=== PATIENT | male | born 1935 | race Caucasian/White ===

== ENCOUNTER 2025-04-03 16:29 | Inpatient (IN) | payer MEDICARE, BC, SELFPAY ==
[2025-04-03] VITALS (23 sets, daily range): BP systolic 73–143; BP diastolic 39–104; BMI 26.1
--- NOTE | 2025-04-03 13:25 | ED.GENMED ---
History of Present Illness
General
Chief Complaint: Weakness
Time Seen by Provider: 04/03/25 13:21
History of Present Illness
History of Present Illness:
TIME OF INITIAL EVALUATION
- 1:20 PM
REVIEW OF OLD RECORDS
- The patient has history of high blood pressure and CAD. He self caths. I reviewed records, last documentation here is from 2017 and was admitted for low hemoglobin at that time and received blood.
Note:
CHIEF COMPLAINT(S)
- Dizziness
- Low blood pressure
HISTORY OF PRESENT ILLNESS
The patient is an 89-year-old male who presented to the emergency department with symptoms of dizziness and hypotension. The patient reported that his blood pressure has always been high in the past but was noted to be low today, which prompted
concerns. He is no longer taking his prescribed antihypertensive medication. 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
referring to a catheter or bladder manipulation.
Post-rehabilitation, he was discharged on Monday. Since being at home, he experienced a fever of 102�F and was managed by his spouse with acetaminophen (Tylenol). EMS transport was involved in his care due to the low blood pressure readings and
subsequent weakness. Upon evaluation, he denies experiencing chills or feeling feverish at present and reports no respiratory symptoms such as coughing or dyspnea. The patients dizziness persists.
ADDITIONAL HISTORY OBTAINED FROM SOURCE OTHER THAN THE PATIENT
According to the patients spouse, the patient had episodes of weakness and was feverish at home, which was managed using acetaminophen. EMS brought the patient to the emergency department after observing low blood pressure.
SOCIAL DETERMINANTS AFFECTING HEALTH
The patients spouse assists with his care, particularly in managing his fever at home, which indicates family involvement in caregiving.
PHYSICAL EXAM
- General: Alert, but appears generally weak
- Skin: Appears pale
- Head: Normocephalic, atraumatic.
- Neck: Supple, trachea midline.
- Eye, Ears, Mouth, and Throat: Oral mucosa moist.
- Cardiovascular: Normal peripheral perfusion, No edema.
- Respiratory: Respirations are non-labored.
- Gastrointestinal: Abdomen nondistended.
- Back: Normal range of motion, Normal alignment.
- Musculoskeletal: Normal range of motion, normal strength.
- Neurological: The patient is awake and alert moving all extremities equally
- Psychiatric: Cooperative, appropriate mood & affect.
PLAN
- Intravenous fluids initiated for hypotension.
- Urine sample requested; catheterization to be performed temporarily if necessary.
- Monitor vital signs and symptom progression.
- Await further diagnostic results and reassess.
DIFFERENTIAL DIAGNOSIS
The Differential Diagnosis includes, in no particular order and is not limited to:
- Orthostatic hypotension
- Dehydration
- Sepsis
- Cardiac arrhythmia
- Acute kidney injury
- Medication effects or withdrawal
- Adrenal insufficiency
- Neurological disorder (e.g., vestibular dysfunction)
- Anemia
- Electrolyte imbalance
RADIOLOGY
- Chest x-ray obtained�no definite infiltrate on x-ray
EKG
- Sinus 80, left axis deviation, nonspecific ST abnormality, artifact noted
LABS
- White count 35.1, hemoglobin 8.3, bicarb 20, creatinine 1.8, lactic 5.7
UPDATE
-SUMMARY OF ENCOUNTER
The patient, an 89-year-old male, presented to the emergency department with dizziness and hypotension. His history of high blood pressure contrasts with his current low readings. After rehabilitation for bladder scar tissue issues, he experienced
an episode of fever, which his spouse managed with acetaminophen. EMS was involved due to concerns about his vital signs and weakness. A recent discharge from rehabilitation necessitates admission for further evaluation and treatment. Notably, a
urinary tract infection is suspected, supported by high white blood cell and lactate levels, suggesting sepsis. Intravenous fluids and antibiotics have been administered to manage the suspected infection. Additionally, a chest x-ray was requested
for further evaluation.
DISPOSITION
Admit
ASSESSMENT
The clinical presentation is most consistent with sepsis secondary to a urinary tract infection, particularly considering the prior catheter use. The marked leukocytosis and elevated lactate levels corroborate the diagnosis.
EMERGENCY TREATMENTS ADMINISTERED
Intravenous fluids and antibiotics.
MANAGEMENT OF THE PATIENTS CARE WAS DISCUSSED WITH
Discussions held with bronze chaser regarding suspected sepsis and management strategy.
PLAN
Administer additional intravenous fluids, initiate broad-spectrum antibiotics, obtain chest x-ray, and admit the patient to the hospital for ongoing care and monitoring of blood pressure and infection status.
INDEPENDENT REVIEW OF LABS AND INTERPRETATION OF TESTS
My independent review indicates elevated white blood cell count and elevated lactate level, both suggestive of a systemic infection process, consistent with sepsis.
PROCEDURES
Urinary catheterization was conducted for urine sampling.
MEDICAL DECISION MAKING
-Complexity of Data Reviewed: Chronic conditions affecting care include previous prostate cancer and recent bladder surgery. The differential diagnosis includes orthostatic hypotension, dehydration, sepsis, cardiac arrhythmia, acute kidney injury,
medication effects or withdrawal, adrenal insufficiency, neurological disorder, anemia, and electrolyte imbalance.
-Data:
Category 1: Clinical information was obtained from an independent historian, the patients spouse. A chest x-ray was ordered but not yet completed.
Category 3: Discussion of management with the patients bronze chaser, who had concerns about sepsis.
-Risk: The decision to admit the patient was due to concerns of sepsis, requiring close monitoring, antibiotic therapy, and potential for hemodynamic support.
DIAGNOSIS
- Sepsis
- Urinary Tract Infection (N39.0)
- Hypotension (I95.9)
Past History
Past History
ED Past Medical History: CAD, HTN and Hypercholesterolemia
ED Past Surgical History: Cardiac
Social History
Tobacco: Non-smoker
Phy Exam
Physical Exam
Physical Exam:
See HPI
Course
Orders/Labs/Results
Orders:
Orders
04/03/25 13:16
Electrocardiogram (*1) Urgent
Reason for Study: Other
Other Reason for Exam: Possible Sepsis
Cardiac Monitoring- Treatment ONCE
EKG- Treatment ONCE
IV Insert/Care/Rem.- Treatment PRN
Straight cath- Treatment ONCE
O2 Therapy [RESP] Urgent
Titrate/Wean O2 to maintain O2 sat greater than (%): 93
Special Instructions: TO MAINTAIN CONTINUOUS O2 SATS > OR = 93%
Pulse Ox/cont/shift [RESP] Urgent
Quantity: 1
Special Instructions: CONTINUOUS
04/03/25 13:18
Complete Blood Count/With Diff Urgent
Comprehensive Metabolic Panel Urgent
Lactic Acid Q4H
Comment: ON ICE, CANCEL 2ND ORDER IF FIRST LACTIC ACID LEVEL <2
Urinalysis Reflex To Culture Urgent
Date Specimen was Collected: 04/03/25
Time Specimen was Collected: 13:16
Urine Microscopic Reflex Cult Urgent
Blood Culture Q20M
[facility] Source: Blood/Venous
Specimen Description:
Comment: Urgent from separate sites. If patient screens positive for possible sepsis
Urine Culture Urgent
[facility] Source: U
Specimen Description:
Date Specimen was Collected: 04/03/25
Time Specimen was Collected: 13:16
04/03/25 13:19
Blood Culture Q20M
[facility] Source: Blood/Venous
Specimen Description:
Comment: Urgent from separate sites. If patient screens positive for possible sepsis
04/03/25 14:38
CR Chest Portable - 1 View Urgent
Comment:
Reason For Exam: sepsis
Reason Study Needs to be Portable: Patient Unstable
04/03/25 14:40
CefTRIAXone [Rocephin] 1,000 mg IV NOW STA
04/03/25 14:44
0.9% Sodium Chloride 1000 ml [Nss] 1,000 ml IV BOLUS
04/03/25 14:45
0.9% Sodium Chloride 500 ml [Nss] 500 ml IV BOLUS
04/03/25 17:30
Lactic Acid Q4H
Comment: ON ICE, CANCEL 2ND ORDER IF FIRST LACTIC ACID LEVEL <2
Abnormal Lab Results
04/03/25
13:18
WBC 35.1 H 10^3/uL
(4.8-10.8)
RBC 3.10 L 10^6/uL
(4.70-6.10)
Hgb 8.3 L g/dL
(13.0-18.0)
Hct 27.0 L %
(39.0-52.0)
MCH 26.8 L pg
(27.0-31.0)
MCHC 30.7 L g/dL
(33.0-37.0)
RDW 15.6 H %
(11.5-14.5)
Abs Immat Gran (auto) 0.6 H 10^3/uL
(0-0.05)
Absolute Neuts (auto) 32.7 H 10^3/uL
(1.4-6.5)
Absolute Lymphs (auto) 0.4 L 10^3/uL
(1.2-3.4)
Absolute Monos (auto) 1.3 H 10^3/uL
(0.1-0.6)
Immature Gran % 1.8 H %
(0-0.5)
Neutrophils % 93.3 H %
(42.2-75.2)
Lymphocytes % 1.1 L %
(20.5-51.1)
Chloride 113 H mmol/L
(98-107)
Carbon Dioxide 20 L mmol/L
(22-30)
BUN 23 H mg/dl
(9-20)
Creatinine 1.8 H mg/dL
(0.7-1.3)
Glucose 137 H mg/dl
(70-99)
Lactic Acid 5.7 H* mmol/L
(0.7-2.0)
Calcium 8.3 L mg/dl
(8.4-10.2)
Total Protein 6.2 L g/dl
(6.3-8.2)
Albumin 3.1 L g/dl
(3.5-5.0)
Urine Ketones 1+ A
(Negative)
Ur Occult Blood Reflex 4+ A
(Negative)
Urine Bilirubin 1+ A
(Negative)
Leukocyte Esterase Rfl 3+ A
(Negative)
Urine RBC 30-40 A /HPF
(0-2)
Urine WBC (Reflex) 30-40 A /HPF
(0-5)
Urine Bacteria (Reflex) Many A
(Negative)
Urine Albumin (Reflex) 3+ A
(Neg - Trace)
04/03/25 13:18
04/03/25 13:18
Vital Signs
Initial and Last Documented VS:
Initial Vital Signs
Temp Pulse Resp BP Pulse Ox
36.5 C 83 15 79/48 97
04/03/25 13:12 04/03/25 13:12 04/03/25 13:12 04/03/25 13:12 04/03/25 13:12
Last Documented Vital Signs
Temp Pulse Resp BP Pulse Ox
36.5 C 79 23 73/44 99
04/03/25 13:12 04/03/25 13:30 04/03/25 13:30 04/03/25 13:30 04/03/25 13:30
*Pulse Oximetry
SaO2: 97
Oxygen Mode of Delivery: Room air
Patient hypoxic: no
*Critical Care Note
Total Time (30-74mins, 75-104mins- exclusive of procedures): Not Applicable
ED Attending Note
-
Portions of this chart may have been created with voice recognition software.� Occasional wrong word or��sound alike� substitutions may have occurred due to the inherent limitations of voice recognition software.
Discharge Plan
Departure
Patient Disposition: Admit
Date of Disposition: 04/03/25
Time of Disposition: 14:58
Presentation/result/management discussed w/ accepting MD/DO: Hospitalist
Patient with high blood pressure during this ER visit?: Yes
Discharge Problem:
Sepsis
Prescriptions:
No Action
simvastatin 20 MG tablet
20 mg PO QPM
aspirin 81 mg Tablet,Delayed Release (Dr/Ec)
81 mg PO QPM
acetaminophen [Tylenol Extra Strength] 500 mg Tablet
500 mg PO Q6HPRN PRN (Reason: MILD PAIN)
metoprolol tartrate [Lopressor] 50 mg Tablet
50 mg PO BID
alprazolam 0.25 MG tablet
0.25 mg PO BID@0800,1300
Referrals:
Augustus Hahn MD [Family Provider, Internal Medicine]
Interventions
Interventions:
*Risk Screen - Suicide Last Done: 04/03/25 13:12
*General Assessment Last Done: 04/03/25 13:12
*Neglect/Abuse Screening Last Done: 04/03/25 13:12
ED- Cardiac Assessment Last Done: 04/03/25 14:22
ED- Neurological Assessment Last Done: 04/03/25 14:22
ED- Pulmonary Assessment Last Done: 04/03/25 14:22
Discharge Date and Time
Print Language: GREEK
[2025-04-03 13:39] LABS: Hematocrit 27.0 % (39.0-52.0); Hemoglobin 8.3 g/dL (13.0-18.0); Mean Corp Hgb Conc. 30.7 g/dL (33.0-37.0); Mean Corpuscular Volume 87.1 fL (80.0-94.0); Platelet Count 309 10^3/uL (130-400); Red Cell Dist. Width 15.6 % (11.5-14.5)
[2025-04-03 13:47] LABS: AST (SGOT) 19 U/L (17-59); Albumin 3.1 g/dl (3.5-5.0); Alkaline Phosphatase 101 U/L (38-126); Blood Urea Nitrogen 23 mg/dl (9-20); Calcium 8.3 mg/dl (8.4-10.2); Carbon Dioxide 20 mmol/L (22-30); Chloride 113 mmol/L (98-107); Estimated Creatinine Clearance 30 ml/min; Glucose 137 mg/dl (70-99); Potassium 4.6 mmol/L (3.5-5.1); Sodium 142 mmol/L (135-145); Total Protein 6.2 g/dl (6.3-8.2); eGFR 35.76
[2025-04-03 14:07] LABS: Nucleated Red Blood Cells % 0 % (-)
[2025-04-03 14:43] LABS: Urine Character Slightly Cloudy (Clear)
[2025-04-03 14:50] LABS: Urine Squamous Cell >30 /LPF (Few); Urine Urothelial Cell 0-2 /LPF (FEW)
[2025-04-03 14:51] LABS: Urine Red Blood Cell 30-40 /HPF (0-2)
[2025-04-03 14:52] LABS: Urine White Cell 30-40 /HPF (0-5)
--- NOTE | 2025-04-03 15:03 | HPS.HSE ---
Family Physician
-
Family Physician: Augustus Hahn
Chief Complaint
-
dizziness, fever, low blood pressure
History of Present Illness
Patient is a 89-year-old male with past medical history significant for hypertension, hyperlipidemia and anxiety who presented to [facility] ED for evaluation of dizziness, fever and low blood pressure. Patient reports recent procedure at [facility] for
scar tissue removal from bladder to make completing straight cath easier. This is the second time he has had this procedure and reports scar tissue developed after radiation for prostate cancer. Patient stated he has needed to straight cath himself
for 45 years now. He reports 1 month stay in rehab post procedure and was discharged home last Monday. Patient had follow up appoint with urology and Sullivan removed yesterday and was had 2 successful straight caths since then. Today he reported fever
1-2 that was treated with acetaminophen, felt dizzy and visiting nurse recorded low BP. Symptoms reviewed with primary doctor who recommended patient be sent to hospital for evaluation and treatment.
Medical History
Past Medical History
Past Medical History: Reports Other
Additional Past Medical History:
hypertension
hyperlipidemia
anxiety
Past Surgical History: Reports Other
Additional Past Surgical History:
Left femur ORIF 08/20/17
heart bypass
Prostatectomy
Bladder stone
bladder scar tissue removal
Social History
Tobacco: Non-smoker
Alcohol: None
Personal:
Living: With Family
Family History
Family History: Not pertinent
Allergies / Home Medications
Allergies reflects when Allergies were last updated in [facility].
Home Medications with original date entered in [facility]
Allergy/Medication List:
Allergies
Allergy/AdvReac Type Severity Reaction Status Date / Time
latex Allergy Unknown Verified 08/19/17 16:31
Home Medications
simvastatin 20 mg tablet 20 mg PO QPM 08/19/17
acetaminophen 500 mg tablet (Tylenol Extra Strength) 500 mg PO Q6HPRN PRN MILD PAIN 04/03/25
alprazolam 0.25 mg tablet 0.25 mg PO BID@0800,1300 04/03/25
aspirin 81 mg tablet,delayed release 81 mg PO QPM 04/03/25
metoprolol tartrate 50 mg tablet (Lopressor) 50 mg PO BID 04/03/25
Review of Systems
-
History Source: Patient
Constitutional: Reports Fever and Fatigue
EENT: Reports No Symptoms
Respiratory: Reports No Symptoms
Cardiac: Reports No Symptoms
Abdomen/GI: Reports No Symptoms
: Reports No Symptoms
Musculoskeletal: Reports No Symptoms
Skin: Reports No Symptoms
Neurological: Reports Dizzy and Weakness
Endocrine: Reports No Symptoms
Hematologic/Lymphatic: Reports No Symptoms
Psych: Reports No Symptoms
Physical Exam
Vital Signs
Vital Signs
Temp Pulse Resp BP Pulse Ox
97.7 F 79 23 73/44 99
04/03/25 13:12 04/03/25 13:30 04/03/25 13:30 04/03/25 13:30 04/03/25 13:30
Physical Exam
General: No Apparent Distress and Appears Chronically Ill
HEENT: NormoCephalic, Moist mucous membranes and Atraumatic
Respiratory: Clear and Non Labored Respirations
Cardiac: S1/S2, Regular Rhythm and Tachycardia
GI: Soft, Non Tender, Non Distended and Normal Bowel Sounds; No Organomegaly
Rectal: Deferred by Provider
Genito-urinary: Deferred by me
Musculoskeletal: No Clubbing, No Cyanosis and No Edema
Skin: IV/Catheter Site and Other (pale )
Neuro: Awake, AO x 3 and Nonfocal/grossly intact
Psych: Calm and Intact Judgment/Insight
Laboratory Results
-
04/03/25 13:18
04/03/25 13:18
Laboratory Results
Lactic Acid 5.7 mmol/L (0.7-2.0) H* 04/03/25 13:18
Total Bilirubin 0.5 mg/dl (0.2-1.3) 04/03/25 13:18
AST 19 U/L (17-59) 04/03/25 13:18
Alkaline Phosphatase 101 U/L (38-126) 04/03/25 13:18
Data Reviewed
-
Medical Tests (Nuc Med, Echo, EKG etc): Report Reviewed by me (EKG: NORMAL SINUS RHYTHM LEFT AXIS DEVIATION NONSPECIFIC T WAVE ABNORMALITY)
Lab Data: Labs Reviewed by me (WBC 35.1, Neut 93.3, BUN 23, Creat 1.8, Lactic 5.7)
Impression/Plan
-
IMPRESSION/PLAN:
#sepsis likely 2/2 UTI
WBC 35.1, Neut 93.3, Lactic 5.7
EKG: NORMAL SINUS RHYTHM
LEFT AXIS DEVIATION
NONSPECIFIC T WAVE ABNORMALITY
- Admit to IMU
- Levophed gtt
- IVF LR 120cc/hr
- IV Rocephin
- bladder scan straight cath
#acute kidney injury
BUN 23, Creat 1.8
- IVF NSS 120cc/hr
- monitor BMP
#hypertension
- hold metoprolol while hypotensive
#hyperlipidemia
- continue simvastatin
#anxiety
- continue alprazolam
Code status: DNR
DVT prphylaxis: heparin sq
[2025-04-03] MEDS: NSS 1000 IV (15:11)
[2025-04-03] MEDS: ROCEPHIN 1000 MG IV (15:12)
[2025-04-03] MEDS: NSS 500 IV (15:12)
[2025-04-03 15:14] LABS: ALT (SGPT) < 10 U/L (0-50)
--- NOTE | 2025-04-03 15:47 | W.PN.UPDATE ---
Update Note
Progress Note Update
This note serves as an addendum to the H&P by sports writer NISA Heather Stacy
HPI
89M from Home , BiB by EMS
CAD, HTN, HLD seen at ER:
- evaluation of symptoms of dizziness and hypotension. T
- blood pressure has always been high in the past but was noted to be low today, which prompted concerns.
- no longer taking his prescribed antihypertensive medication.
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
- has recently undergone a procedure where they 'removed the full lever,' presumably referring to a catheter or bladder manipulation.
- Post-rehabilitation, he was discharged on Monday.
- Since being at home, he experienced a fever of 102�F and was managed by his spouse with acetaminophen
- EMS transport was involved in his care due to the low blood pressure readings and subsequent weakness.
-
ROS:
- denies experiencing chills or feeling feverish at present
- no respiratory symptoms such as coughing or dyspnea.
- dizziness persists.
VS
04/03/25
13:12 04/03/25
13:12 04/03/25
13:12
Temp 97.7 F
Blood pressure 79/48 --> 81/45
SaO2 97
Oxygen Mode of Delivery Room air
Actual Weight 84.8 kg
PE
Gen:tall and thin BMI 26
HEENT: pale anicteric
Neck: supple
Lungs: CTA
Cor: RRR S1 S2 , hypotensive
Abdomen: soft benign
PATIENT TRANSPORT OFFICER:lethargic but non sustained when awake
MS: no edema
Psych: unable to eval due to lethargy
Laboratory Tests
08/23/17 04/03/25
05:27 13:18
WBC 35.1 H
Hgb 9.8 L D 8.3 L
Immature Gran % 1.8 H
Neutrophils % 93.3 H
Chloride 113 H
Carbon Dioxide 20 L
BUN 23 H
Creatinine 1.1 1.8 H
Glomerular Filtr Rate > 60.0
eGFR 35.76
Lactic Acid 5.7 H*
Calcium 8.3 L
Albumin 3.1 L
Urine Clarity Slightly cloudy
Urine RBC 30-40 A
Urine WBC (Reflex) 30-40 A
Ur Squamous Epith Cells >30
Urine Bacteria (Reflex) Many A
Last hospitalist admission: 08/19/2017 - 08/23/2017
DC DX : anemia required Blood Tx
ASSESSMENT & PLAN
Dizziness likely due to presumed sepsis with severe hypotension or elements of shock
Presumed severe sepsis due to probably UTI
WCC 35, LA 5s
Recent b;ladder scar tissue removal
Removed FC yesterday
HX prostate CA s/p XRT
- chr straight cath for last 45 yrs
- Bladder scan protocol
- BCx and UCx sent
- Switch to LR IVF
- Empiric IV CFTZ
- Hold Metoprolol
- MAP is less than 65 s/p septic fluid bolus 1.5 L
- will start NE
Lethargic suspect evolving TME due t sepsis
- aspiration an d fall precaution
HX Alprazolam dependent Anxiety
- cont. Alprazolam 0.25 mg BID
DVT Px: SQH
DNR
IMU
[2025-04-03] MEDS: LEVOPHED 250 IV (15:58)
[2025-04-03] MEDS: LIPITOR 10 MG PO (21:30)
[2025-04-03] MEDS: LR 1000 IV (21:31)
[2025-04-03] MEDS: ASPIR LOW (ENTERIC COATED) 81 MG PO (21:31)
[2025-04-03] MEDS: TYLENOL 650 MG PO (23:19)
[2025-04-04] VITALS (56 sets, daily range): BP systolic 77–154; BP diastolic 35–90; PULSE 61–62; O2SAT 99; BMI 26.5
[2025-04-04] MEDS: HEPARIN 5000 UNITS SC ×3 (00:12→17:45)
[2025-04-04] MEDS: LEVOPHED 250 IV (04:00)
[2025-04-04 06:40] LABS: Hematocrit 25.8 % (39.0-52.0); Hemoglobin 8.3 g/dL (13.0-18.0); Mean Corp Hgb Conc. 32.2 g/dL (33.0-37.0); Mean Corpuscular Volume 85.7 fL (80.0-94.0); Platelet Count 253 10^3/uL (130-400); Red Cell Dist. Width 15.6 % (11.5-14.5)
[2025-04-04 07:00] LABS: Blood Urea Nitrogen 26 mg/dl (9-20); Calcium 7.9 mg/dl (8.4-10.2); Carbon Dioxide 22 mmol/L (22-30); Chloride 115 mmol/L (98-107); Estimated Creatinine Clearance 36 ml/min; Glucose 124 mg/dl (70-99); Potassium 4.5 mmol/L (3.5-5.1); Sodium 139 mmol/L (135-145); eGFR 44.50
[2025-04-04] MEDS: LR 1000 IV ×2 (07:03→17:44)
--- NOTE | 2025-04-04 10:49 | CM ---
RICK reviewed chart, patient seen bedside with , initial assessment completed. Patient presents to ED with symptoms of dizziness and hypotension. Patient resides with in a [address] [place] community, one story, two steps to enter through garage. Patient
recently d/c from [facility], current with [facility]. DME includes wheelchair, walker, cane, shower chair, raised toilet seat, grab bars in shower. Patient reports typically ambulating with walker. Patient confirms PCP Augustus
Batool Hahn, confirms prescription coverage. Patient denies insecurities at home. PT/OT evaluations recommend home health, will send RICHIE referral to [facility]. CM will continue to follow for all discharge planning needs.
Plan; RICHIE [facility]
[2025-04-04] MEDS: XANAX 0.25 MG PO ×2 (11:00→14:41)
[2025-04-04] MEDS: TYLENOL 650 MG PO (11:54)
--- NOTE | 2025-04-04 12:32 | W.PN.HOSP.TC ---
Today's Communication/Plan
-
monitor vitals
see plan
cw levophed; wean as tolerated
cw abx
check new sets bcx
ID eval
straight cath if needed
hold metoptolol
PT
Assessment / Plan
Assessment / Plan
General: No Apparent Distress and Appears Chronically Ill
HEENT: NormoCephalic, Moist mucous membranes and Atraumatic
Respiratory: Clear and Non Labored Respirations
Cardiac: S1/S2, Regular Rhythm
GI: Soft, Non Tender, Non Distended and Normal Bowel Sounds
Musculoskeletal: No Edema
Neuro: Awake, AO x 3 and Nonfocal/grossly intact
Psych: Calm and Intact Judgment/Insight
Septic shock secondary to urinary tract infection
fever 102 at home
E. coli bacteremia; i believe this could be CAUTI as recently newsome was removed 04/02
WBC 35.1, Neut 93.3, Lactic 5.7
Continue with Levophed, wean pressors as tolerated
Continue with fluids
Continue Rocephin
Check new sets of blood culture
ID evaluation
Bladder scan/straight cath
ID evaluation
Lactic acidosis
Resolved
History of prostate cancer
s/p scrapping of scar tissue in february
s/p newsome removal 04/[address] Fisher from [facility] urology
Follows up with [facility] urology
Denies any abdominal pain
acute kidney injury
continue to monitor renal function
IVF
hypertension
- hold metoprolol while hypotensive
hyperlipidemia
- continue simvastatin
anxiety
- continue alprazolam
Code status: DNR
DVT prphylaxis: heparin sq
Total Critical Care Time_58____ minutes. I was immediately available to the patient and staff. I personally examined, reviewed labs, diagnostic images/reports, interpretations, treatment plans, discussed patient care with other providers and
family or caregivers (if patient is unable to make decisions), entered orders as appropriate and documented the medical record.
Anticipated Discharge: > 48 hours
Subjective/Interval History
-
Date of Service: April 04, 2025
Denies abdominal pain
Objective Data
-
Labs:
Laboratory Results
04/04/25
06:23
WBC 34.8 H
Hgb 8.3 L
Hct 25.8 L
Plt Count 253
Sodium 139
Potassium 4.5
Chloride 115 H
Carbon Dioxide 22
BUN 26 H
Creatinine 1.5 H
Glucose 124 H
Calcium 7.9 L
Vital Signs:
Vital Signs
Temp Pulse Resp BP Pulse Ox
97.8 F 73 16 118/54 99
04/04/25 09:03 04/04/25 09:55 04/04/25 09:55 04/04/25 09:45 04/04/25 09:50
--- NOTE | 2025-04-04 12:54 | CON.ID ---
Consultation
-
Date/Time Consultation Requested: 04/04/2025 0917
Date/Time Consultation Performed: 04/04/2025 1050
Requesting Provider: Dr. Porter
Performing Provider: Dr. Hancock
Reason for Consultation: Bacteremia
Chief Complaint / Past History
History of Present Illness
Yagn Rodarte is an 89-year-old man being evaluated at the request of Dr. Porter in regards to bacteremia. History is obtained from chart review, along with patient interview.
The patient has a significant past medical history of bladder atonia, and has undergone intermittent straight cathing for the past 45 years. He reports that he developed prostate cancer approximately 12 years ago, and underwent XRT, along with
hormonal therapy. He overall has been doing well, but approximately 1 month ago was admitted to [facility] for a urinary procedure to reduce scar tissue in order to make self catheterization easier. He reports that he did fine and
was discharged with a Sullivan catheter, but developed a fever the next day and was admitted back to [facility] and treated for a complicated urinary tract infection due to Pseudomonas aeruginosa. He was found to be quite debilitated and was admitted to
rehab for approximately 2 weeks. He was discharged approximately 1 week ago. Over the past week he has had visiting nursing to the house on Monday and Monday and was doing well, but when they went to evaluate him yesterday they found him to
have a very low blood pressure and he was sent to the emergency room for further evaluation.
Here, initial workup revealed a marked leukocytosis. He was started on empiric antibiotics. Overnight he was found to have a fever to 102 degrees. Blood cultures obtained at the time of admission are now positive for E. coli. Infectious Diseases
is asked to comment upon further antimicrobial management.
At the present time he denies any abdominal pain. He denies any back pain.
Past History
Additional Past Medical History:
CAD
HTN
HLD
Hx prostate CA (XRT; hormonal therapy
Anxiety
Additional Past Surgical History:
Left femur ORIF
CABG ( ~1999)
Allergy History:
latex Allergy (Verified 08/19/17 16:31)
Unknown
Social History
Tobacco: Non-Smoker
Alcohol: None
Drug: None
Personal:
Living: With Family
Employment: Retired
Family History
Family History: Not Pertinent
Review of Systems
Vital Signs
Temp Pulse Resp BP Pulse Ox
97.8 F 73 16 118/54 99
04/04/25 09:03 04/04/25 09:55 04/04/25 09:55 04/04/25 09:45 04/04/25 09:50
Physical Exam
Physical Exam
Constitutional: No Acute Distress, Comfortable, Chronically Ill and Non-toxic
Eyes: No Conjunctival Hemorrhage and Sclera Anicteric
Oral: No Thrush and No Ulcers
Cardiovascular: Regular Rate and S1/S2; Negative S3/S4
Pulmonary: Clear; Negative Wheezes, Rales or Rhonchi
Gastrointestinal: Soft, Non Tender, Non Distended and Normal Bowel Sounds
Genito-Urinary: Negative Sullivan
Extremities: Negative Edema, Cyanosis or Erythema
Musculoskeletal: Negative Spinal Tenderness
Neurological: Awake and Alert
Psychological: Calm
Lab / Diagnostic Study Results
04/04/25 06:23
04/04/25 06:23
Abs Immat Gran (auto) 0.6 10^3/uL (0-0.05) H 04/03/25 13:18
Absolute Neuts (auto) 32.7 10^3/uL (1.4-6.5) H 04/03/25 13:18
Absolute Lymphs (auto) 0.4 10^3/uL (1.2-3.4) L 04/03/25 13:18
Absolute Monos (auto) 1.3 10^3/uL (0.1-0.6) H 04/03/25 13:18
Absolute Basos (auto) 0.1 10^3/uL (0-0.2) 04/03/25 13:18
Immature Gran % 1.8 % (0-0.5) H 04/03/25 13:18
Neutrophils % 93.3 % (42.2-75.2) H 04/03/25 13:18
Lymphocytes % 1.1 % (20.5-51.1) L 04/03/25 13:18
Monocytes % 3.6 % (1.7-9.3) 04/03/25 13:18
Eosinophils % 0.0 % (0-6) 04/03/25 13:18
Basophils % 0.2 % (0-2) 04/03/25 13:18
Lactic Acid 1.1 mmol/L (0.7-2.0) 04/04/25 07:02
Ur Squamous Epith Cells >30 /LPF (Few) 04/03/25 13:18
Microbiology Results
Micro:
04/03/25 13:18 Urine Culture - Preliminary
Urine Gram negative bacilli
04/04/25 11:12 Blood Culture - Pending
Blood/Venous
04/03/25 13:18 Blood Culture - Preliminary
Blood/Venous Escherichia coli
Gram Stain - Final
04/03/25 13:19 Blood Culture - Preliminary
Blood/Venous Positive culture in progress
Gram Stain - Final
04/03/2025 CXR (portable): low lung volumes seen. No focal parenchymal opacification to suggest pneumonia. No pleural effusion or pneumothorax. Please see full dictation for additional detail.
Assessment / Plan
E. coli bacteremia
Leukocytosis
Complicated urinary tract infection
CARMEN
Lactic acidosis
CAD
HTN
HLD
Hx prostate CA (XRT; hormonal therapy
Anxiety
Recommendations:
Given recent exposure to medical facilities, transition antibiotics to meropenem pending further culture data.
Monitor white count and temperature curve.
Check renal ultrasound to assess for obstructive uropathy.
Await further culture data to guide further antimicrobial selection and potential de-escalation.
Further recommendations as additional data is returned.
[2025-04-04] MEDS: MERREM 500 MG IV ×2 (14:39→21:56)
[2025-04-04] MEDS: STERILE WATER FOR INJECTION 10 ML IV ×2 (14:39→21:57)
[2025-04-04] MEDS: LIPITOR 10 MG PO (17:45)
[2025-04-04] MEDS: ASPIR LOW (ENTERIC COATED) 81 MG PO (17:45)
--- NOTE | 2025-04-04 21:18 | EDRN ---
RAC line discontinued d/t swelling at site and skin around IV cool to the touch, Attempted to pull back on line prior to removal, no blood noted in extension cath, line flushed without resistance and could palpate with flush. IV line still
discontinued d/t the swelling and cool skin palpation. House Provider Shelbie contacted and notified.
--- NOTE | 2025-04-04 23:58 | PTCARENOTE ---
REceived pt from ED via stretcher. Pt AAOx3. Levo infusing in Left AC at 2mcg/min. MAP >65 at this time. Titrating Levo for MAP to remain >65 per order. infiltrate in right AC assessed by GLOVE PRINTER at bedside with VAT present. Ordered elevation and
cold/warm therapy. Pt self caths for the last 45 years; able to cath with own supplies from home as he has a latex allergy; 250 ml out at 22:15. Call rhodes within reach. Pt offers no complaints at this time.
[2025-04-05] VITALS (44 sets, daily range): BP systolic 81–153; BP diastolic 52–99
--- NOTE | 2025-04-05 00:54 | W.PN.UPDATE ---
Update Note
Progress Note Update
Notified by ADULT SPECIALIST pt's IV line with NSS and levophed infiltrated at this RAC. VAT team notified. Pt's assessed. Orders placed per protocol - warm compress and elevate extremity.
[2025-04-05] MEDS: HEPARIN 5000 UNITS SC ×4 (01:37→23:10)
[2025-04-05] MEDS: LR 1000 IV ×3 (01:37→17:01)
[2025-04-05 04:53] LABS: Hematocrit 23.3 % (39.0-52.0); Hemoglobin 7.4 g/dL (13.0-18.0); Mean Corp Hgb Conc. 31.8 g/dL (33.0-37.0); Mean Corpuscular Volume 85.3 fL (80.0-94.0); Nucleated Red Blood Cells % 0 % (-); Platelet Count 177 10^3/uL (130-400); Red Cell Dist. Width 15.8 % (11.5-14.5)
[2025-04-05 05:17] LABS: Blood Urea Nitrogen 28 mg/dl (9-20); Calcium 7.8 mg/dl (8.4-10.2); Carbon Dioxide 25 mmol/L (22-30); Chloride 111 mmol/L (98-107); Estimated Creatinine Clearance 42 ml/min; Glucose 94 mg/dl (70-99); Potassium 4.1 mmol/L (3.5-5.1); Sodium 138 mmol/L (135-145); eGFR 52.84
[2025-04-05] MEDS: STERILE WATER FOR INJECTION 10 ML IV ×3 (05:19→23:10)
[2025-04-05] MEDS: MERREM 500 MG IV ×3 (05:19→23:10)
[2025-04-05] MEDS: XANAX 0.25 MG PO ×2 (08:44→13:25)
--- NOTE | 2025-04-05 09:05 | PTCARENOTE ---
Pt OOB to bathroom with 1 assist and rolling walker. Once Pt in bathroom, HR noted on monitor to be 160's; Assisted Pt back to bed and HR increased to 190's; Rhythm on monitor appeared to be irregular - EKG obtained. EKG showed Sinus Tach; BP =
140/95; Pt denies chest pain but reported 'pounding headache'. BURROWS resolved after a few minutes. Provider notified and received dose of IV lopressor. HR returned to 100's; Will continue to monitor and assess.
--- NOTE | 2025-04-05 09:24 | W.PN.ID1 ---
Date of Service
Date of Service: April 05, 2025
Today's Communication
Continue antibiotics
Assessment / Plan
E. coli bacteremia
Leukocytosis
Complicated urinary tract infection
CARMEN
Lactic acidosis
CAD
HTN
HLD
Hx prostate CA (XRT; hormonal therapy
Anxiety
Recommendations:
Given recent exposure to medical facilities, continue meropenem pending further culture data.
Monitor white count and temperature curve; white count improved today.
Check renal ultrasound to assess for obstructive uropathy.
Await further culture data to guide further antimicrobial selection and potential de-escalation.
����������������������������������������������������������
Chief Complaint
-: Bacteremia
Subjective / Review of Systems
Review of Systems: No Fever and No Chills
Vital Signs / Physical Exam
Vital Signs
Vital Signs
Temp Pulse Resp BP Pulse Ox
97.4 F 85 18 131/83 95
04/05/25 04:14 04/05/25 06:30 04/05/25 06:30 04/05/25 06:30 04/05/25 06:30
Physical Exam
Constitutional: No Acute Distress, Comfortable, Chronically Ill and Non-toxic
Eyes: Sclera Anicteric
Cardiovascular: S1/S2; Negative S3/S4
Pulmonary: Non Labored
Gastrointestinal: Soft, Non Tender and Non Distended
Neurological: Awake and Alert
Objective Data
Lab Data
Lab Results
04/05/25 04:42
Estimated Creat Clear 42 ml/min 04/05/25 04:42
Lactic Acid 1.1 mmol/L (0.7-2.0) 04/04/25 07:02
Total Bilirubin 0.5 mg/dl (0.2-1.3) 04/03/25 13:18
AST 19 U/L (17-59) 04/03/25 13:18
ALT < 10 U/L (0-50) 04/03/25 13:18
Alkaline Phosphatase 101 U/L (38-126) 04/03/25 13:18
Most recent labs reviewed.
Micro Results:
04/03/25 13:18 Urine Culture - Preliminary
Urine Gram negative bacilli
04/04/25 11:12 Blood Culture - Pending
Blood/Venous
04/03/25 13:18 Blood Culture - Preliminary
Blood/Venous Escherichia coli
Gram Stain - Final
04/03/25 13:19 Blood Culture - Preliminary
Blood/Venous Positive culture in progress
Gram Stain - Final
04/03/2025 CXR (portable): low lung volumes seen. No focal parenchymal opacification to suggest pneumonia. No pleural effusion or pneumothorax. Please see full dictation for additional detail.
[2025-04-05] MEDS: LOPRESSOR 5 MG IV (09:45)
[2025-04-05 12:25] LABS: Hematocrit 27.6 % (39.0-52.0); Hemoglobin 8.8 g/dL (13.0-18.0)
--- NOTE | 2025-04-05 13:33 | W.PN.HOSP.TC ---
Today's Communication/Plan
-
Monitor vital signs see plan
Renal/bladder ultrasound
Follow fever curve
Continue with antibiotics
Follow cultures
Restart metoprolol
Assessment / Plan
Assessment / Plan
General: No Apparent Distress and Appears Chronically Ill
HEENT: NormoCephalic, Moist mucous membranes and Atraumatic
Respiratory: Clear and Non Labored Respirations
Cardiac: S1/S2, Regular Rhythm
GI: Soft, Non Tender, Non Distended and Normal Bowel Sounds
Musculoskeletal: No Edema
Neuro: Awake, AO x 3 and Nonfocal/grossly intact
Psych: Calm and Intact Judgment/Insight
Septic shock secondary to urinary tract infection
fever 102 at home
E. coli bacteremia; i believe this could be CAUTI as recently newsome was removed 04/02
WBC 35.1, Neut 93.3, Lactic 5.7
Weaned off Levophed
Continue with fluids
Continue meropenem per ID
New blood culture pending
ID follow
cw Bladder scan/straight cath
renal/bladder US
History of prostate cancer
s/p scrapping of scar tissue in february
s/p newsome removal 04/[address] Fisher from [facility] urology
Follows up with [facility] urology
Denies any abdominal pain
Tachycardia 04/05
Chest x-ray with sinus tachycardia
Restarted metoprolol
Lactic acidosis
Resolved
acute kidney injury
continue to monitor renal function
IVF
hypertension
- Restart metoprolol
hyperlipidemia
- continue simvastatin
anxiety
- continue alprazolam
Code status: DNR
DVT prphylaxis: heparin sq
I spent a total of 54 minutes with the patient or on the floor. More than 50% of this time involved counseling and coordination of care.
Anticipated Discharge: > 48 hours
Subjective/Interval History
-
Date of Service: April 05, 2025
denies nausea
Objective Data
-
Labs:
Laboratory Results
04/05/25 04/05/25
04:42 12:07
WBC 22.8 H
Hgb 7.4 L 8.8 L
Hct 23.3 L 27.6 L
Plt Count 177 D
Sodium 138
Potassium 4.1
Chloride 111 H
Carbon Dioxide 25
BUN 28 H
Creatinine 1.3
Glucose 94
Calcium 7.8 L
Vital Signs:
Vital Signs
Temp Pulse Resp BP Pulse Ox
97.5 F 100 18 118/73 95
04/05/25 07:15 04/05/25 09:45 04/05/25 06:30 04/05/25 09:45 04/05/25 06:30
I&O
04/04/25 04/05/25 04/06/25
06:59 06:59 06:59
Output Total 500 / 500 375 / 375
Balance -500 / -500 -375 / -375
[2025-04-05] MEDS: LOPRESSOR 25 MG PO (14:02)
[2025-04-05] MEDS: ASPIR LOW (ENTERIC COATED) 81 MG PO (17:01)
[2025-04-05] MEDS: LIPITOR 10 MG PO (17:01)
[2025-04-05] MEDS: LOPRESSOR 50 MG PO (20:29)
[2025-04-06] VITALS (13 sets, daily range): BP systolic 102–139; BP diastolic 52–93
[2025-04-06] MEDS: STERILE WATER FOR INJECTION 10 ML IV (04:59)
[2025-04-06] MEDS: MERREM 500 MG IV (05:00)
[2025-04-06 05:34] LABS: Hematocrit 24.0 % (39.0-52.0); Hemoglobin 7.8 g/dL (13.0-18.0); Mean Corp Hgb Conc. 32.5 g/dL (33.0-37.0); Mean Corpuscular Volume 85.1 fL (80.0-94.0); Nucleated Red Blood Cells % 0 % (-); Platelet Count 171 10^3/uL (130-400); Red Cell Dist. Width 15.6 % (11.5-14.5)
[2025-04-06 05:58] LABS: Blood Urea Nitrogen 23 mg/dl (9-20); Calcium 7.7 mg/dl (8.4-10.2); Carbon Dioxide 22 mmol/L (22-30); Chloride 110 mmol/L (98-107); Estimated Creatinine Clearance 45 ml/min; Glucose 93 mg/dl (70-99); Potassium 4.4 mmol/L (3.5-5.1); Sodium 137 mmol/L (135-145); eGFR 58.17
[2025-04-06] MEDS: LOPRESSOR 50 MG PO ×2 (08:17→20:30)
[2025-04-06] MEDS: XANAX 0.25 MG PO ×2 (08:17→13:34)
[2025-04-06] MEDS: HEPARIN 5000 UNITS SC ×3 (08:18→22:58)
--- NOTE | 2025-04-06 09:15 | W.PN.ID1 ---
Date of Service
Date of Service: April 06, 2025
Today's Communication
Continue antibiotics
Assessment / Plan
E. coli bacteremia
Leukocytosis
Complicated urinary tract infection
CARMEN
Lactic acidosis
CAD
HTN
HLD
Hx prostate CA (XRT; hormonal therapy
Anxiety
Recommendations:
Sensitivities of recovered E. coli reviewed. Narrow to cefazolin.
Monitor white count and temperature curve; white count remains elevated.
Renal ultrasound with moderate asymmetric distention of the left intrarenal collecting system and left renal pelvis.
����������������������������������������������������������
Chief Complaint
-: Bacteremia
Subjective / Review of Systems
Review of Systems: No Fever and No Chills
Vital Signs / Physical Exam
Vital Signs
Vital Signs
Temp Pulse Resp BP Pulse Ox
98.0 F 84 17 107/80 87
04/06/25 03:05 04/06/25 08:17 04/06/25 06:00 04/06/25 08:17 04/06/25 05:30
Physical Exam
Constitutional: No Acute Distress, Comfortable, Chronically Ill and Non-toxic
Eyes: Sclera Anicteric
Cardiovascular: S1/S2; Negative S3/S4
Pulmonary: Non Labored
Gastrointestinal: Soft, Non Tender and Non Distended
Neurological: Awake and Alert
Objective Data
Lab Data
Lab Results
04/06/25 05:06
04/06/25 05:06
Estimated Creat Clear 45 ml/min 04/06/25 05:06
Lactic Acid 1.1 mmol/L (0.7-2.0) 04/04/25 07:02
Total Bilirubin 0.5 mg/dl (0.2-1.3) 04/03/25 13:18
AST 19 U/L (17-59) 04/03/25 13:18
ALT < 10 U/L (0-50) 04/03/25 13:18
Alkaline Phosphatase 101 U/L (38-126) 04/03/25 13:18
Most recent labs reviewed.
Micro Results:
04/03/25 13:19 Blood Culture - Final
Blood/Venous Escherichia coli
Gram Stain - Final
04/03/25 13:18 Blood Culture - Final
Blood/Venous Escherichia coli
Gram Stain - Final
04/03/25 13:18 Urine Culture - Final
Urine Escherichia coli
Escherichia coli#2
04/04/25 11:12 Blood Culture - Preliminary
Blood/Venous No Growth in 24 hours- Final report to follow
Imaging:
04/03/2025 CXR (portable): low lung volumes seen. No focal parenchymal opacification to suggest pneumonia. No pleural effusion or pneumothorax. Please see full dictation for additional detail.
[2025-04-06] MEDS: ANCEF 10 IV ×2 (09:45→18:14)
--- NOTE | 2025-04-06 12:49 | W.PN.HOSP.TC ---
Today's Communication/Plan
-
Monitor vitals
See plan
Continue with antibiotics
Follow cultures
Transfer out of IMU
Monitor leukocytosis
Discussed with spouse at bedside
Assessment / Plan
Assessment / Plan
General: No Apparent Distress and Appears Chronically Ill
HEENT: NormoCephalic, Moist mucous membranes and Atraumatic
Respiratory: Clear and Non Labored Respirations
Cardiac: S1/S2, Regular Rhythm
GI: Soft, Non Tender, Non Distended and Normal Bowel Sounds
Musculoskeletal: No Edema
Neuro: Awake, AO x 3 and Nonfocal/grossly intact
Psych: Calm and Intact Judgment/Insight
Septic shock secondary to urinary tract infection
fever 102 at home
E. coli bacteremia; i believe this could be CAUTI as recently newsome was removed 04/02
WBC 35.1, Neut 93.3, Lactic 5.7 on admission
Weaned off Levophed
Continue with fluids
Narrow antibiotics to Ancef per ID
New blood culture NGTD
ID follow
cw Bladder scan/straight cath; he used to do intermittent straight cath before
renal/bladder US
History of prostate cancer
s/p scrapping of scar tissue in february
s/p newsome removal 04/[address] Fisher from [facility] urology
Follows up with [facility] urology
Denies any abdominal pain
Tachycardia 04/05
Chest x-ray with sinus tachycardia
Restarted metoprolol
Anemia
Suspect anemia of chronic disease
Monitor
Lactic acidosis
Resolved
acute kidney injury
continue to monitor renal function
Improved
hypertension
- Restarted metoprolol
hyperlipidemia
- continue simvastatin
anxiety
- continue alprazolam
Code status: DNR
DVT prphylaxis: heparin sq
Anticipated Discharge: 24 - 48 hours
Subjective/Interval History
-
Date of Service: April 06, 2025
denies pain
Objective Data
-
Labs:
Laboratory Results
04/06/25
05:06
WBC 21.2 H
Hgb 7.8 L
Hct 24.0 L
Plt Count 171
Sodium 137
Potassium 4.4
Chloride 110 H
Carbon Dioxide 22
BUN 23 H
Creatinine 1.2
Glucose 93
Calcium 7.7 L
Vital Signs:
Vital Signs
Temp Pulse Resp BP Pulse Ox
98.0 F 84 17 107/80 87
04/06/25 03:05 04/06/25 08:17 04/06/25 06:00 04/06/25 08:17 04/06/25 05:30
I&O
04/05/25 04/06/25 04/07/25
06:59 06:59 06:59
Output Total 500 / 500 1200 / 1200
Balance -500 / -500 -1200 / -1200
[2025-04-06] MEDS: ASPIR LOW (ENTERIC COATED) 81 MG PO (18:14)
[2025-04-06] MEDS: LIPITOR 10 MG PO (18:14)
--- NOTE | 2025-04-06 23:38 | PTCARENOTE ---
report given to [facility]- pt self cathed before transfer- sent to [facility] with belongings and self cath supplies
--- NOTE | 2025-04-07 00:26 | PTCARENOTE ---
Receive pt from IMU. Pt alert oriented X3, calm and cooperative, feels tired and weak. Pt oriented to the room, call rhodes with reach. Pt on NSR on telemonitor. VSS (T=97, HR=79, RR=18, PA=022/64, SpO2=96% on RA). Will continue to monitor the pt.
[2025-04-07] MEDS: ANCEF 10 IV ×3 (02:33→17:22)
[2025-04-07 03:00] VITALS: BP 132/68
[2025-04-07 07:45] VITALS: BP 134/59
[2025-04-07 08:18] LABS: Hematocrit 25.9 % (39.0-52.0); Hemoglobin 8.1 g/dL (13.0-18.0); Mean Corp Hgb Conc. 31.3 g/dL (33.0-37.0); Mean Corpuscular Volume 86.3 fL (80.0-94.0); Nucleated Red Blood Cells % 0 % (-); Platelet Count 181 10^3/uL (130-400); Red Cell Dist. Width 15.7 % (11.5-14.5)
[2025-04-07 08:53] LABS: Blood Urea Nitrogen 20 mg/dl (9-20); Calcium 8.0 mg/dl (8.4-10.2); Carbon Dioxide 27 mmol/L (22-30); Chloride 109 mmol/L (98-107); Estimated Creatinine Clearance 45 ml/min; Glucose 96 mg/dl (70-99); Potassium 4.2 mmol/L (3.5-5.1); Sodium 139 mmol/L (135-145); eGFR 58.17
[2025-04-07] MEDS: HEPARIN 5000 UNITS SC ×3 (09:17→23:16)
[2025-04-07] MEDS: LOPRESSOR 50 MG PO ×2 (09:17→19:53)
[2025-04-07] MEDS: XANAX 0.25 MG PO ×2 (09:17→12:50)
[2025-04-07] MEDS: FLUSH (NSS) 1 FLUSH IV ×2 (09:20→17:22)
[2025-04-07 11:20] VITALS: BP 133/60
--- NOTE | 2025-04-07 12:06 | W.PN.ID1 ---
Date of Service
Date of Service: April 07, 2025
Today's Communication
Continue abx.
Assessment / Plan
E. coli bacteremia
Leukocytosis
Complicated urinary tract infection
CARMEN
Lactic acidosis
CAD
HTN
HLD
Hx prostate CA (XRT; hormonal therapy
Anxiety
Recommendations:
Continue cefazolin.
Monitor white count and temperature curve; white count improved today.
Renal ultrasound with moderate asymmetric distention of the left intrarenal collecting system and left renal pelvis, possible from long-standing bladder atonia.
����������������������������������������������������������
Chief Complaint
-: Bacteremia
Subjective / Review of Systems
Review of Systems: No Fever and No Chills
Vital Signs / Physical Exam
Vital Signs
Vital Signs
Temp Pulse Resp BP Pulse Ox
97.8 F 89 16 134/59 93
04/07/25 07:45 04/07/25 09:17 04/07/25 07:45 04/07/25 09:17 04/07/25 09:14
Physical Exam
Constitutional: No Acute Distress, Comfortable and Non-toxic
Eyes: Sclera Anicteric
Cardiovascular: S1/S2; Negative S3/S4
Pulmonary: Non Labored
Gastrointestinal: Soft, Non Tender and Non Distended
Neurological: Awake and Alert
Objective Data
Lab Data
Lab Results
04/07/25 07:50
04/07/25 07:50
Estimated Creat Clear 45 ml/min 04/07/25 07:50
Lactic Acid 1.1 mmol/L (0.7-2.0) 04/04/25 07:02
Total Bilirubin 0.5 mg/dl (0.2-1.3) 04/03/25 13:18
AST 19 U/L (17-59) 04/03/25 13:18
ALT < 10 U/L (0-50) 04/03/25 13:18
Alkaline Phosphatase 101 U/L (38-126) 04/03/25 13:18
Most recent labs reviewed.
Micro Results:
04/04/25 11:12 Blood Culture - Preliminary
Blood/Venous No Growth in 72 hours- Final report to follow
04/03/25 13:19 Blood Culture - Final
Blood/Venous Escherichia coli
Gram Stain - Final
04/03/25 13:18 Blood Culture - Final
Blood/Venous Escherichia coli
Gram Stain - Final
04/03/25 13:18 Urine Culture - Final
Urine Escherichia coli
Escherichia coli#2
Imaging:
04/03/2025 CXR (portable): low lung volumes seen. No focal parenchymal opacification to suggest pneumonia. No pleural effusion or pneumothorax. Please see full dictation for additional detail.
--- NOTE | 2025-04-07 13:03 | CM ---
Chart reviewed. Care ongoing
Cont IV abx
Patient is current w/ Astrid VIGIL, will resume at d/c.
Astrid VIGIL

Plan: Home, [facility] w/ Astrid VIGIL
--- NOTE | 2025-04-07 14:51 | W.PN.HOSP.TC ---
Today's Communication/Plan
-
re-eval with PT
continue abx per ID
discharge planning in 24hrs
Assessment / Plan
Assessment / Plan
Septic shock secondary to urinary tract infection
Required vasopressors initially
E. coli bacteremia; i believe this could be CAUTI as recently newsome was removed 04/02
WBC has been trending down
Narrow antibiotics to Ancef per ID
Last set of blood culture remains negative till date
ID following and help appreciated
cw Bladder scan/straight cath; he used to do intermittent straight cath before
renal/bladder US did not show any acute abnormality except minimal dilation of left renal pelvis/intraductal system
History of prostate cancer
s/p scrapping of scar tissue in february
s/p newsome removal 04/[address] Fisher from [facility] urology
Follows up with [facility] urology
Denies any abdominal pain
Tachycardia 04/05
Chest x-ray with sinus tachycardia
Restarted metoprolol
Anemia
Suspect anemia of chronic disease
Monitor
Lactic acidosis
Resolved
acute kidney injury
continue to monitor renal function
Improved
hypertension
Restarted metoprolol
hyperlipidemia
continue simvastatin
anxiety
continue alprazolam
Code status: DNR
DVT prphylaxis: heparin sq
Patient feeling lethargic, will benefit with repeat evaluation with PT
Anticipated Discharge: 24 - 48 hours
Subjective/Interval History
-
Date of Service: April 07, 2025
Remains afebrile
Feeling lethargic/tired
No new reported issues overnight
Objective Data
-
Labs:
Laboratory Results
04/07/25
07:50
WBC 13.7 H
Hgb 8.1 L
Hct 25.9 L
Plt Count 181
Sodium 139
Potassium 4.2
Chloride 109 H
Carbon Dioxide 27
BUN 20
Creatinine 1.2
Glucose 96
Calcium 8.0 L
Vital Signs:
Vital Signs
Temp Pulse Resp BP Pulse Ox
98.5 F 73 16 133/60 94
04/07/25 11:20 04/07/25 11:20 04/07/25 11:20 04/07/25 11:20 04/07/25 11:20
I&O
04/06/25 04/07/25 04/08/25
06:59 06:59 06:59
Intake Total 600 / 600
Output Total 1200 / 1200 825 / 825 450 / 450
Balance -1200 / -1200 -225 / -225 -450 / -450
Review of Systems
-
Respiratory: Reports No Symptoms
Cardiac: Reports No Symptoms
Abdomen/GI: Reports No Symptoms
Physical Exam
-
General: No Apparent Distress and Comfortable
HEENT: Negative Oxygen
Respiratory: Clear to Auscultation
Cardiac: Regular Rhythm and S1/S2; Negative Murmur or Rub
GI: Soft
Musculoskeletal: No Edema
Neuro: Awake, Alert, Oriented, No Motor Deficits and Nonfocal/Grossly Intact
Psych: Calm
[2025-04-07 15:45] VITALS: BP 129/66
--- NOTE | 2025-04-07 16:16 | PTCARENOTE ---
Pt AAO x3, GUILLORY slowly; OOB to chair with assist/walker; [place] OOB activity for approx 1/2 hr; returned to bed. VSS. Telemetry:NSR. On room air- pulse o 92%, no SOB noted. Abd large,soft, cam[place] PO. Pt straight cathed for clear yellow urine. Pt
afebrile; currently c/o 'shaking'; temp 97.[address] Porter notified. Resting in bed at present. Will continue to monitor.
[2025-04-07] MEDS: TYLENOL 650 MG PO (16:25)
[2025-04-07] MEDS: ASPIR LOW (ENTERIC COATED) 81 MG PO (17:22)
[2025-04-07] MEDS: LIPITOR 10 MG PO (17:23)
[2025-04-07 19:59] VITALS: BP 119/50
[2025-04-07 23:56] VITALS: BP 121/53
[2025-04-08] VITALS (8 sets, daily range): BP systolic 122–140; BP diastolic 53–72; PULSE 72–75; O2SAT 94–96
[2025-04-08] MEDS: ANCEF 10 IV ×3 (02:24→17:46)
--- NOTE | 2025-04-08 02:39 | DOWNTIME ---
There was a [employer] Client Caster Operator Downtime on 04/08/2025 from 0100 to 04/08/2025 at 0220. Downtime documentation of patient's care, including medication administrations, has been reconciled in the electronic record per guidelines. Refer to the
patient's paper chart under the miscellaneous tab to see printed paper medication records and downtime forms.
[2025-04-08 07:41] LABS: Hematocrit 24.7 % (39.0-52.0); Hemoglobin 7.8 g/dL (13.0-18.0); Mean Corp Hgb Conc. 31.6 g/dL (33.0-37.0); Mean Corpuscular Volume 85.8 fL (80.0-94.0); Platelet Count 170 10^3/uL (130-400); Red Cell Dist. Width 15.5 % (11.5-14.5)
[2025-04-08] MEDS: HEPARIN 5000 UNITS SC ×2 (08:03→16:01)
[2025-04-08] MEDS: LOPRESSOR 50 MG PO ×2 (08:03→21:07)
[2025-04-08] MEDS: XANAX 0.25 MG PO ×2 (08:04→13:29)
[2025-04-08 08:16] LABS: Blood Urea Nitrogen 20 mg/dl (9-20); Calcium 7.8 mg/dl (8.4-10.2); Carbon Dioxide 27 mmol/L (22-30); Chloride 108 mmol/L (98-107); Estimated Creatinine Clearance 42 ml/min; Glucose 84 mg/dl (70-99); Potassium 4.1 mmol/L (3.5-5.1); Sodium 140 mmol/L (135-145); eGFR 52.84
[2025-04-08] MEDS: DULCOLAX 5 MG PO (10:08)
[2025-04-08] MEDS: MIRALAX 17 GRAMS PO (10:09)
--- NOTE | 2025-04-08 15:11 | CM ---
Chart reviewed. Met with patient and at bedside. Referrals placed. [facility] accepted.They agree with [facility] transfer. Continues with IV ABX . Seen by PT; recommendation remains SNF
--- NOTE | 2025-04-08 15:36 | W.PN.HOSP.TC ---
Today's Communication/Plan
-
d/c planning for snf rehab
Assessment / Plan
Assessment / Plan
Septic shock secondary to urinary tract infection
E-coli bacteremia
CAUTI
-Required vasopressors initially
-WBC has been trending down
-Narrow antibiotics to Ancef per ID
-Last set of blood culture remains negative till date
-ID following and help appreciated
-cw Bladder scan/straight cath; he used to do intermittent straight cath before
-renal/bladder US did not show any acute abnormality except minimal dilation of left renal pelvis/intraductal system
History of prostate cancer
s/p scrapping of scar tissue in february
s/p newsome removal 04/02
-sees Dr Fisher from [facility] urology
-Follows up with [facility] urology
-Denies any abdominal pain
Tachycardia 04/05
-Chest x-ray with sinus tachycardia
-Restarted metoprolol
Anemia
-Suspect anemia of chronic disease
-Monitor
Lactic acidosis
-Resolved
acute kidney injury - resolved
-continue to monitor renal function
-Improved
hypertension
Restarted metoprolol
hyperlipidemia
continue simvastatin
anxiety
continue alprazolam
Code status: DNR
DVT prphylaxis: heparin sq
Anticipated Discharge: Within 24 hours
Subjective/Interval History
-
Date of Service: April 08, 2025
no issues overnight
Objective Data
-
Labs:
Laboratory Results
04/08/25
07:18
WBC 12.9 H
Hgb 7.8 L
Hct 24.7 L
Plt Count 170
Sodium 140
Potassium 4.1
Chloride 108 H
Carbon Dioxide 27
BUN 20
Creatinine 1.3
Glucose 84
Calcium 7.8 L
Vital Signs:
Vital Signs
Temp Pulse Resp BP Pulse Ox
98.7 F 77 16 127/62 96
04/08/25 15:17 04/08/25 15:17 04/08/25 15:17 04/08/25 15:17 04/08/25 15:17
I&O
04/07/25 04/08/25 04/09/25
06:59 06:59 06:59
Intake Total 600 / 600 510 / 510
Output Total 825 / 825 1250 / 1250 450 / 450
Balance -225 / -225 -740 / -740 -450 / -450
Review of Systems
-
Respiratory: Reports No Symptoms
Cardiac: Reports No Symptoms
Abdomen/GI: Reports No Symptoms
Physical Exam
-
General: No Apparent Distress and Comfortable
HEENT: Negative Oxygen
Respiratory: Clear to Auscultation
Cardiac: Regular Rhythm and S1/S2; Negative Murmur or Rub
GI: Soft
Musculoskeletal: No Edema
Neuro: Awake, Alert, Oriented, No Motor Deficits and Nonfocal/Grossly Intact
Psych: Calm
[2025-04-08] MEDS: LIPITOR 10 MG PO (17:46)
[2025-04-08] MEDS: ASPIR LOW (ENTERIC COATED) 81 MG PO (17:46)
[2025-04-09] MEDS: HEPARIN 5000 UNITS SC ×2 (01:32→07:42)
[2025-04-09] MEDS: ANCEF 10 IV ×2 (01:33→10:01)
[2025-04-09 03:40] VITALS: BP 130/54
[2025-04-09 07:34] LABS: Hematocrit 25.2 % (39.0-52.0); Hemoglobin 8.0 g/dL (13.0-18.0); Mean Corp Hgb Conc. 31.7 g/dL (33.0-37.0); Mean Corpuscular Volume 85.1 fL (80.0-94.0); Platelet Count 195 10^3/uL (130-400); Red Cell Dist. Width 15.5 % (11.5-14.5)
[2025-04-09 07:41] VITALS: BP 130/61
[2025-04-09] MEDS: LOPRESSOR 50 MG PO (07:42)
[2025-04-09] MEDS: XANAX 0.25 MG PO ×2 (07:42→12:06)
[2025-04-09] MEDS: MIRALAX 17 GRAMS PO (07:42)
[2025-04-09 08:01] LABS: Blood Urea Nitrogen 20 mg/dl (9-20); Calcium 7.7 mg/dl (8.4-10.2); Carbon Dioxide 29 mmol/L (22-30); Chloride 108 mmol/L (98-107); Estimated Creatinine Clearance 45 ml/min; Glucose 91 mg/dl (70-99); Potassium 4.1 mmol/L (3.5-5.1); Sodium 139 mmol/L (135-145); eGFR 58.17
--- NOTE | 2025-04-09 10:10 | W.PN.ID1 ---
Date of Service
Date of Service: April 09, 2025
Today's Communication
Continue antibiotics. Transition to oral Keflex.
Assessment / Plan
E. coli bacteremia
- Repeat blood cultures negative x 96 hours
Leukocytosis
Complicated urinary tract infection 2* E. coli x 2 isolates
CARMEN
Lactic acidosis
CAD
HTN
HLD
Hx prostate CA (XRT; hormonal therapy
Anxiety
Recommendations:
Transition to oral keflex.
Monitor white count and temperature curve; white count increased today for unclear reasons. Continue to follow.
����������������������������������������������������������
Chief Complaint
-: Bacteremia
Subjective / Review of Systems
Review of Systems: No Fever, No Chills, No Abdominal Pain and No Diarrhea
Vital Signs / Physical Exam
Vital Signs
Vital Signs
Temp Pulse Resp BP Pulse Ox
98.6 F 76 16 130/61 94
04/09/25 07:41 04/09/25 07:41 04/09/25 07:41 04/09/25 07:41 04/09/25 07:41
Physical Exam
Constitutional: No Acute Distress, Comfortable and Non-toxic
Eyes: Sclera Anicteric
Cardiovascular: S1/S2; Negative S3/S4
Pulmonary: Clear and Non Labored; Negative Wheezes
Gastrointestinal: Soft, Non Tender and Non Distended
Extremities: Negative Edema or Erythema
Neurological: Awake and Alert
Objective Data
Lab Data
Lab Results
04/09/25 07:18
04/09/25 07:18
Estimated Creat Clear 45 ml/min 04/09/25 07:18
Lactic Acid 1.1 mmol/L (0.7-2.0) 04/04/25 07:02
Total Bilirubin 0.5 mg/dl (0.2-1.3) 04/03/25 13:18
AST 19 U/L (17-59) 04/03/25 13:18
ALT < 10 U/L (0-50) 04/03/25 13:18
Alkaline Phosphatase 101 U/L (38-126) 04/03/25 13:18
Most recent labs reviewed.
Micro Results:
04/04/25 11:12 Blood Culture - Preliminary
Blood/Venous No Growth in 4 days- Final report to follow
04/03/25 13:19 Blood Culture - Final
Blood/Venous Escherichia coli
Gram Stain - Final
04/03/25 13:18 Blood Culture - Final
Blood/Venous Escherichia coli
Gram Stain - Final
04/03/25 13:18 Urine Culture - Final
Urine Escherichia coli
Escherichia coli#2
Imaging:
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
04/03/2025 CXR (portable): low lung volumes seen. No focal parenchymal opacification to suggest pneumonia. No pleural effusion or pneumothorax. Please see full dictation for additional detail.
Care Review
Plan reviewed with: Physician (Hospitalist)
--- NOTE | 2025-04-09 11:14 | CM ---
Chart reviewed. Met with and patient at bedside. IMM given, form on chart. Confirmed pt will transfer to [facility]. Transport via ambulance at 1PM. Patient changed to PO abx.
[facility]NF
Report:[phone]

Plan: D/C to [facility] SNF
[2025-04-09 11:30] VITALS: BP 139/60
[2025-04-09] MEDS: KEFLEX 500 MG PO (12:06)
[2025-04-09 12:40] LABS: COVID-19 Antigen Negative (Negative)
--- NOTE | 2025-04-09 14:20 | W.PN.HOSP.TC ---
Today's Communication/Plan
-
d/c snf on keflex 10 days
Assessment / Plan
Assessment / Plan
Septic shock secondary to urinary tract infection
E-coli bacteremia
CAUTI
-Required vasopressors initially
-WBC has been trending down
-Narrow antibiotics to Ancef per ID
-Last set of blood culture remains negative till date
-ID following and help appreciated
-cw Bladder scan/straight cath; he used to do intermittent straight cath before
-renal/bladder US did not show any acute abnormality except minimal dilation of left renal pelvis/intraductal system
History of prostate cancer
s/p scrapping of scar tissue in february
s/p newsome removal 04/02
-sees Dr Fisher from [facility]
-Follows up with [facility] urology
-Denies any abdominal pain
Tachycardia 04/05
-Chest x-ray with sinus tachycardia
-Restarted metoprolol
Anemia
-Suspect anemia of chronic disease
-Monitor
Lactic acidosis
-Resolved
acute kidney injury - resolved
-continue to monitor renal function
-Improved
hypertension
Restarted metoprolol
hyperlipidemia
continue simvastatin
anxiety
continue alprazolam
Code status: DNR
DVT prphylaxis: heparin sq
More than 30 minutes spent in discharge including
Final examination of the patient
Summarizing hospital stay
Instructions for continuing care to all relevant caregivers
Preparation of discharge records, prescriptions, and referral forms
Total time spent (in minutes): 40 mins
Anticipated Discharge: Today
Subjective/Interval History
-
Date of Service: April 09, 2025
feeling better
no other issues
Objective Data
-
Labs:
Laboratory Results
04/09/25
07:18
WBC 18.5 H
Hgb 8.0 L
Hct 25.2 L
Plt Count 195
Sodium 139
Potassium 4.1
Chloride 108 H
Carbon Dioxide 29
BUN 20
Creatinine 1.2
Glucose 91
Calcium 7.7 L
Vital Signs:
Vital Signs
Temp Pulse Resp BP Pulse Ox
98.9 F 75 16 139/60 95
04/09/25 11:30 04/09/25 11:30 04/09/25 11:30 04/09/25 11:30 04/09/25 13:08
I&O
04/08/25 04/09/25 04/10/25
06:59 06:59 06:59
Intake Total 510 / 510 720 / 720
Output Total 1250 / 1250 1150 / 1150 300 / 300
Balance -740 / -740 -430 / -430 -300 / -300
Review of Systems
-
Respiratory: Reports No Symptoms
Cardiac: Reports No Symptoms
Abdomen/GI: Reports No Symptoms
Physical Exam
-
General: No Apparent Distress and Comfortable
HEENT: Negative Oxygen
Respiratory: Clear to Auscultation
Cardiac: Regular Rhythm and S1/S2; Negative Murmur or Rub
GI: Soft
Musculoskeletal: No Edema
Neuro: Awake, Alert, Oriented, No Motor Deficits and Nonfocal/Grossly Intact
Psych: Calm
--- NOTE | 2025-04-10 15:33 | W.DCSUMMARY ---
Discharge Summary
Discharge Data
Date of Admission: 04/03/25
Date of Discharge: 04/09/25
-
Pending Results: No
Hospital Course
Discharging Physician : Dr Baltazar Porter
Disposition : To home
Primary care physician : Dr. Augustus Hahn
Principal Discharge diagnosis :
Escherichia coli bacteremia
Acute kidney injury
Complicated urinary tract infection
Chronic Discharge diagnosis :
Coronary artery disease
Essential hypertension
Hyperlipidemia
History of prostate cancer
Generalized anxiety disorder
Hospital Course :
Patient is a 89-year-old male with above-mentioned past medical history came to ER with new onset of dizziness fever and low blood pressure. Patient reportedly had recent urological procedure for removing bladder scar tissue/stricture to help with
straight catheterization. Patient was discharged from rehab before visit at this hospital and had Sullivan catheter which was removed. Patient was able to successfully straight cath himself at home although started noticing new onset of fever and
came to ER for evaluation. ER workup showing patient septic likely source was felt to be urinary tract infection. Patient was started on broad-spectrum antibiotic and urine and blood culture collected. Patient came positive for blood and urine
culture with E. coli. ID was involved in care who recommended 2 weeks of antibiotic therapy. Discharge patient was changed to oral Keflex therapy. Patient was discharged to residential facility for rehab.
Important imaging findings :
None
Procedure findings :
None
Discharge Plan
-
Patient Disposition: [facility]/SNF
Discharge Diagnosis/Procedures: E coli bacteremia, CAUTI
Condition: Fair
Diet: Regular
Activity: As tolerated
Driving Restrictions: No driving
Bathing Restrictions: OK to Shower
Referrals:
Augustus Hahn MD [Family Provider, Internal Medicine] - in one week
Prescriptions:
New
alprazolam 0.25 mg Tablet
0.25 mg PO BID@0800,1300 Qty: 6 0RF
cephalexin 500 mg capsule
500 mg PO QID Qty: 40 0RF
Rx Instructions:
Last dose 8/2 in Evening
Continued
simvastatin 20 MG tablet
20 mg PO QPM
aspirin 81 mg Tablet,Delayed Release (Dr/Ec)
81 mg PO QPM
acetaminophen [Tylenol Extra Strength] 500 mg Tablet
500 mg PO Q6HPRN PRN (Reason: MILD PAIN)
metoprolol tartrate [Lopressor] 50 mg Tablet
50 mg PO BID
Discontinued
alprazolam 0.25 MG tablet
0.25 mg PO BID@0800,1300
Discharge Orders:
Discharge Patient (As Directed); Ordered 04/09/25
Ordered By: Batlazar Porter
Discharge Date and Time
Discharge Date/Time: 04/09/25 13:11
Print Language: ARABIC
== END 2025-04-09 13:11 | DRG 698 ==
LOC: 4 EAST ACU 16:29
PROVIDERS: Internal Medicine; Nurse Practitioner Family; ADMITTING PHYSICIAN Internal Medicine; ATTENDING PHYSICIAN Hospitalist; CONSULT PHYSICIAN Internal Medicine Infectious Disease; EMERGENCY PHYSICIAN Emergency Medicine; FAMILY PHYSICIAN Internal Medicine
DX: T83.518A Infection and inflammatory reaction due to other urinary catheter, initial encounter (principal); A41.89 Other specified sepsis; R65.20 Severe sepsis without septic shock; N39.0 Urinary tract infection, site not specified; E87.20 Acidosis, unspecified; N17.9 Acute kidney failure, unspecified; B96.20 Unspecified Escherichia coli [E. coli] as the cause of diseases classified elsewhere; I25.10 Atherosclerotic heart disease of native coronary artery without angina pectoris; Z85.46 Personal history of malignant neoplasm of prostate; I10 Essential (primary) hypertension; Z79.82 Long term (current) use of aspirin; F41.9 Anxiety disorder, unspecified; Y84.6 Urinary catheterization as the cause of abnormal reaction of the patient, or of later complication, without mention of misadventure at the time of the procedure; E78.00 Pure hypercholesterolemia, unspecified; Z91.040 Latex allergy status; Z66 Do not resuscitate; Z92.3 Personal history of irradiation; Z95.1 Presence of aortocoronary bypass graft; Z11.52 Encounter for screening for COVID-19; D64.9 Anemia, unspecified
CPT/HCPCS: 71045; 76770; 80048; 80053; 81003; 81015; 83605; 85014; 85018; 85025; 85027; 86850; 86900; 86901; 87040; 87077; 87086; 87154; 87186; 87205; 87811; 93005; 96361; 96374; 97116; 97163; 97167; 97530; 97535; 99284

== ENCOUNTER 2025-04-17 17:35 | Emergency (ER) | payer MEDICARE, BC, SELFPAY ==
[2025-04-17 17:40] VITALS: BP 144/79
[2025-04-17 18:51] VITALS: BMI 24.7
[2025-04-17 18:54] VITALS: BP 140/65
--- NOTE | 2025-04-17 19:07 | ED.GENMED ---
History of Present Illness
General
Chief Complaint: Urinary Symptoms
Source: patient
Exam Limitations: none
Time Seen by Provider: 04/17/25 18:47
Nursing documentation reviewed up to this point in time: agreed with
History of Present Illness
History of Present Illness:
89-year-old male with history of CAD, HTN, HLD, neurogenic bladder, straight caths himself 3 times a day, CABG x 2, prostate CA. Is in Rehab post DC from here on 04/10 for sepsis: e coli bacteremia, UTI. Rehab nurse did his 3rd straight cath for
today and daniel blood returned. Previous 2 caths today were normal. Pt denies abd pain, fever.
Pt also states he has had pain in the right hand, base of thumb. No recollection of overuse or injury, area tender, mildly red.
Past History
Past History
ED Past Medical History: CAD, HTN and Hypercholesterolemia
ED Past Surgical History: Cardiac
Social History
Tobacco: Non-smoker
Review of Systems
Review of Systems
Allergies reviewed?: Yes
All Other Systems: ROS reviewed and negative except as documented in HPI and ROS
Constitutional: Denies fever
ABD/GI: Denies abdominal pain
: Reports bleeding and other (neurogenic bladder self caths 3 x a day. Followed by [facility])
Phy Exam
Physical Exam
Physical Exam:
GENERAL: No acute distress. A&Ox3.
CONSTITUTIONAL: Afebrile.
EYES: clear, conjunctivae normal
ENMT: dry mucus membranes, Pharynx nl
RESPIRATORY: Regular respirations, nonlabored, lungs clear.
CARDIOVASCULAR: Regular rate and rhythm, no murmurs, no rubs.
GI: Soft, nontender, normal BS
: Straight cathed for 425 ml cloudy brownish yellow urine with tiny clots that initially cleared but then became more turbid with brownish red blood.
MUSCULOSKELETAL: Moves with ease. Well perfused.
SKIN: Warm, dry, pink
PSYCH: Normal mood and affect. Well kept, interactive and appropriate
NEUROLOGIC: Awake, alert and oriented. No focal neurological deficits
Course
Orders/Labs/Results
Orders:
Orders
04/17/25 19:12
Straight cath- Treatment ONCE
04/17/25 19:16
Hand, Right 3 View [CR Hand - Right Min 3 Views] Urgent
Comment:
Reason For Exam: pain base of thumb
04/17/25 19:34
Urinalysis Reflex To Culture Urgent
Date Specimen was Collected: 04/17/25
Time Specimen was Collected: 19:32
Urine Microscopic Reflex Cult Urgent
Urine Culture Urgent
WOODROW Source: U
Specimen Description:
Date Specimen was Collected: 04/17/25
Time Specimen was Collected: 19:32
04/17/25 19:35
Complete Blood Count/With Diff Urgent
04/17/25 21:05
Dexamethasone [Decadron] 10 mg PO NOW STA
Abnormal Lab Results
04/17/25 04/17/25
19:34 19:35
WBC 12.2 H 10^3/uL
(4.8-10.8)
RBC 3.19 L 10^6/uL
(4.70-6.10)
Hgb 8.6 L g/dL
(13.0-18.0)
Hct 27.4 L %
(39.0-52.0)
MCHC 31.4 L g/dL
(33.0-37.0)
RDW 15.4 H %
(11.5-14.5)
Plt Count 526 H 10^3/uL
(130-400)
Abs Immat Gran (auto) 0.2 H 10^3/uL
(0-0.05)
Absolute Neuts (auto) 9.8 H 10^3/uL
(1.4-6.5)
Absolute Lymphs (auto) 1.0 L 10^3/uL
(1.2-3.4)
Absolute Monos (auto) 1.1 H 10^3/uL
(0.1-0.6)
Immature Gran % 1.6 H %
(0-0.5)
Neutrophils % 80.4 H %
(42.2-75.2)
Lymphocytes % 7.9 L %
(20.5-51.1)
Ur Occult Blood Reflex 4+ A
(Negative)
Leukocyte Esterase Rfl 1+ A
(Negative)
Urine RBC 30-40 A /HPF
(0-2)
Urine WBC (Reflex) 11-15 A /HPF
(0-5)
Urine Bacteria (Reflex) Few A
(Negative)
Urine Yeast Moderate A
(Negative)
Urine Albumin (Reflex) 3+ A
(Neg - Trace)
04/17/25 19:35
Vital Signs
Initial and Last Documented VS:
Initial Vital Signs
Temp Pulse Resp BP Pulse Ox
98.1 F 102 16 144/79 97
04/17/25 17:40 04/17/25 17:40 04/17/25 17:40 04/17/25 17:40 04/17/25 17:40
Last Documented Vital Signs
Temp Pulse Resp BP Pulse Ox
98.1 F 92 18 140/65 99
04/17/25 17:40 04/17/25 18:54 04/17/25 18:54 04/17/25 18:54 04/17/25 19:09
MDM/Problems Addressed
Differential Diagnosis Includes:
1. Traumatic catheter insertion
2. Urinary tract infection
3. Bladder or urethral trauma
4. Coagulopathy
5. Urolithiasis
6. Malignancy (bladder cancer)
7. Urethral stricture
8. Interstitial cystitis
9. Dehydration
10. Neurogenic bladder disorder complications
Fracture right hand, cellulitis
MDM/Problems Addressed:
89-year-old male with history of CAD, HTN, HLD, neurogenic bladder, straight caths himself 3 times a day, CABG x 2, prostate CA. Is in Rehab post DC from here on 04/10 for sepsis: e coli bacteremia, UTI. Rehab nurse did his 3rd straight cath for
today and daniel blood returned. Previous 2 caths today were normal. Pt denies abd pain, fever.
Pt also states he has had pain in the right hand, base of thumb. No recollection of overuse or injury, area tender, mildly red.
Straight cathed for 425 ml cloudy brownish yellow urine with tiny clots that initially cleared but then became more turbid with brownish red blood. Patient and say that it is approximately how much he typically gets when he catheterizes
CBC: No clinically significant abnormality consistent with his baseline.
CMP: No clinically significant abnormality
U/A: 4+ occult blood, 30-40 RBCs, +1 leukocytes, negative nitrates, 11-15 WBCs, moderate yeast, few bacteria, 16-20 squamous cells.
X-ray right hand, significant DJD at the base of the right thumb. Patient states he had similar symptoms in the opposite hand and saw Dr. Maloney orthopedics and had it injected which helped.
For now Decadron given and 3 days of prednisone 40 mg daily, at this does not help he will follow-up with Dr. Maloney.
*Radiology
Radiology exam reviewed: preliminary read by ED provider (Significant DJD at the base of the first MCP joint)
*Pulse Oximetry
SaO2: 99
Oxygen Mode of Delivery: Room air
Patient hypoxic: not evaluated
*Critical Care Note
Total Time (30-74mins, 75-104mins- exclusive of procedures): Not Applicable
ED Attending Note
-
Portions of this chart may have been created with voice recognition software.� Occasional wrong word or��sound alike� substitutions may have occurred due to the inherent limitations of voice recognition software.
Discharge Plan
Departure
Patient Disposition: Home (Routine Discharge)
Date of Disposition: 04/17/25
Time of Disposition: 20:55
Patient with high blood pressure during this ER visit?: No
Condition: Good
Discharge Problem:
Osteoarthritis of basilar joint of thumb, Hematuria
Instructions: Osteoarthritis, Blood in the Urine (Hematuria), Adult (DC)
Prescriptions:
New
prednisone 20 mg tablet
40 mg PO DAILY Qty: 6 0RF
No Action
simvastatin 20 MG tablet
20 mg PO QPM
aspirin 81 mg Tablet,Delayed Release (Dr/Ec)
81 mg PO QPM
acetaminophen [Tylenol Extra Strength] 500 mg Tablet
500 mg PO Q6HPRN PRN (Reason: MILD PAIN)
metoprolol tartrate [Lopressor] 50 mg Tablet
50 mg PO BID
alprazolam 0.25 mg Tablet
0.25 mg PO BID@0800,1300 Qty: 6 0RF
cephalexin 500 mg capsule
500 mg PO QID Qty: 40 0RF
Rx Instructions:
Last dose 8/2 in Evening
Referrals:
Ian Driver MD [Family Provider, Family Practice]
Lexx Maloney MD [Active, Orthopedics] - As needed
Activity Restrictions/Additional Instructions:
As we discussed, continue to self catheterize as usual, you may note some blood over the next day or 2 but should not get worse. If you have blood in your urine for more than 2 days call make an appointment to see a urologist as you may need a
scope to look up into the bladder
Your urine does not show any significant infection, the urine culture is pending. If that comes back positive for something that you need to be treated for we will contact you.
You have significant arthritis in the base of your right thumb which is causing the inflammation. You were given Decadron, a steroid here today for the inflammation. I am giving you a prescription for prednisone 40 mg a day for the next 3 days to
start tomorrow.
Follow-up with Dr. Maloney if your thumb pain is not improving.
Interventions
Interventions:
*Risk Screen - Suicide Last Done: 04/17/25 17:40
*General Assessment Last Done: 04/17/25 17:40
*Neglect/Abuse Screening Last Done: 04/17/25 17:40
*ED- Fall Risk Assessment Last Done: 04/17/25 17:40
*ED COVID-19 Vaccine History Last Done: 04/17/25 17:40
ED-Male Genitourinary Assessment Last Done: 04/17/25 19:00
Discharge Date and Time
Print Language: JAPANESE
[2025-04-17 19:53] LABS: Hematocrit 27.4 % (39.0-52.0); Hemoglobin 8.6 g/dL (13.0-18.0); Mean Corp Hgb Conc. 31.4 g/dL (33.0-37.0); Mean Corpuscular Volume 85.9 fL (80.0-94.0); Nucleated Red Blood Cells % 0 % (-); Platelet Count 526 10^3/uL (130-400); Red Cell Dist. Width 15.4 % (11.5-14.5)
[2025-04-17 20:04] LABS: Urine Character Clear (Clear)
[2025-04-17 20:18] LABS: Urine Red Blood Cell 30-40 /HPF (0-2); Urine Squamous Cell 16-20 /LPF (Few)
[2025-04-17] MEDS: DECADRON 10 MG PO (21:24)
== END 2025-04-17 23:18 | disposition home or self-care (01) ==
LOC: EMR 17:35
PROVIDERS: Registered Nurse; EMERGENCY PHYSICIAN Emergency Medicine; FAMILY PHYSICIAN Family Medicine
DX: M18.9 Osteoarthritis of first carpometacarpal joint, unspecified (principal); R31.9 Hematuria, unspecified; E78.00 Pure hypercholesterolemia, unspecified; I10 Essential (primary) hypertension; I25.10 Atherosclerotic heart disease of native coronary artery without angina pectoris; Z95.1 Presence of aortocoronary bypass graft
CPT/HCPCS: 99284; 73130; 81003; 81015; 85025; 87086

== ENCOUNTER 2025-09-09 10:51 | Emergency (ER) | payer MEDICARE, BC, SELFPAY ==
[2025-09-09 10:58] VITALS: BMI 21.6
[2025-09-09 11:13] LABS: Hematocrit 29.7 % (39.0-52.0); Hemoglobin 9.0 g/dL (13.0-18.0); Mean Corp Hgb Conc. 30.3 g/dL (33.0-37.0); Mean Corpuscular Volume 80.5 fL (80.0-94.0); Nucleated Red Blood Cells % 0 % (-); Platelet Count 426 10^3/uL (130-400); Red Cell Dist. Width 16.3 % (11.5-14.5)
--- NOTE | 2025-09-09 11:18 | ED.GENMED ---
History of Present Illness
General
Chief Complaint: Male Genito-Urinary Symptoms
Source: patient
Exam Limitations: none
Time Seen by Provider: 09/09/25 11:06
History of Present Illness
History of Present Illness:
89-year-old male with chronic indwelling Sullivan catheter presents from home with complaints of blood in the Sullivan bag for the past 2 days. He is not anticoagulated. He denies pain. No known trauma. He denies a fever. He had his catheter
exchanged 2 weeks ago and has had normal urine since then.
Past History
Past History
ED Past Medical History: CAD, HTN and Hypercholesterolemia
ED Past Surgical History: Cardiac
Social History
Tobacco: Non-smoker
Phy Exam
Physical Exam
Physical Exam:
General: Well-appearing nontoxic male no acute respiratory distress
HEENT: Normal cephalic atraumatic
Heart: Regular rate and rhythm
Lungs: Clear no wheeze
Abdomen is soft nontender
Extremities: No cyanosis
exam: Sullivan catheter in place. Gross hematuria is noted
Course
Orders/Labs/Results
Orders:
Orders
09/09/25 11:04
Basic Metabolic Panel Urgent
Complete Blood Count/With Diff Urgent
Urinalysis Reflex To Culture Urgent
Date Specimen was Collected: 09/09/25
Time Specimen was Collected: 10:59
Urine Microscopic Reflex Cult Urgent
Urine Culture Urgent
WOODROW Source: U
Specimen Description:
Obtained by: Random
Date Specimen was Collected: 09/09/25
Time Specimen was Collected: 10:59
09/09/25 11:18
CT Abd/pel Without Iv Or Oral Urgent
Comment:
Reason For Exam: hematuria
09/09/25 14:28
CT Abd/pelvis W Iv Cont Urgent
Comment:
Reason For Exam: hematuria, new hydronephrosis
Abnormal Lab Results
09/09/25
11:04
WBC 11.0 H 10^3/uL
(4.8-10.8)
RBC 3.69 L 10^6/uL
(4.70-6.10)
Hgb 9.0 L g/dL
(13.0-18.0)
Hct 29.7 L %
(39.0-52.0)
MCH 24.4 L pg
(27.0-31.0)
MCHC 30.3 L g/dL
(33.0-37.0)
RDW 16.3 H %
(11.5-14.5)
Plt Count 426 H 10^3/uL
(130-400)
Abs Immat Gran (auto) 0.1 H 10^3/uL
(0-0.05)
Absolute Neuts (auto) 8.6 H 10^3/uL
(1.4-6.5)
Absolute Lymphs (auto) 1.0 L 10^3/uL
(1.2-3.4)
Absolute Monos (auto) 1.0 H 10^3/uL
(0.1-0.6)
Immature Gran % 0.6 H %
(0-0.5)
Neutrophils % 78.5 H %
(42.2-75.2)
Lymphocytes % 9.4 L %
(20.5-51.1)
Urine Ketones 1+ A
(Negative)
Ur Occult Blood Reflex 4+ A
(Negative)
Leukocyte Esterase Rfl 2+ A
(Negative)
Urine RBC >100 A /HPF
(0-2)
Urine WBC (Reflex) >100 A /HPF
(0-5)
Urine Bacteria (Reflex) Many A
(Negative)
Urine Albumin (Reflex) 4+ A
(Neg - Trace)
12/23/25 11:04
09/09/25 11:04
Vital Signs
Initial and Last Documented VS:
Initial Vital Signs
Temp Pulse Resp Pulse Ox
98.1 F 79 10 98
09/09/25 10:54 09/09/25 10:54 09/09/25 10:54 09/09/25 10:54
Last Documented Vital Signs
Temp Pulse Resp BP Pulse Ox
98.1 F 83 15 118/61 97
09/09/25 10:54 09/09/25 16:15 09/09/25 16:15 09/09/25 16:02 09/09/25 16:15
MDM/Problems Addressed
Differential Diagnosis Includes:
Patient with hematuria in his Sullivan catheter. Consider hemorrhagic cystitis versus bladder irritation from the catheter versus trauma versus kidney stone
Will check urinalysis and labs. CT pending
*Pulse Oximetry
SaO2: 95
Oxygen Mode of Delivery: Room air
Patient hypoxic: no
*Critical Care Note
Total Time (30-74mins, 75-104mins- exclusive of procedures): Not Applicable
Update Note
Update Note:
Workup shows possible urinary tract infection. 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 Other items could not clued infectious process. Discussed with urology. Patient is not
sick. He has normal renal functions. No indication for admission. Workup that he requires as an outpatient workup. Will discharge on antibiotic. He was referred to urology.
ED Attending Note
-
Portions of this chart may have been created with voice recognition software.� Occasional wrong word or��sound alike� substitutions may have occurred due to the inherent limitations of voice recognition software.
Discharge Plan
Departure
Patient Disposition: Home (Routine Discharge)
Date of Disposition: 09/09/25
Time of Disposition: 16:54
Patient with high blood pressure during this ER visit?: No
Discharge Problem:
Hydronephrosis
Instructions: Blood in the Urine (Hematuria), Adult (DC)
Prescriptions:
New
cefdinir 300 mg capsule
300 mg PO BID Qty: 14 0RF
No Action
simvastatin 20 MG tablet
20 mg PO QPM
aspirin 81 mg Tablet,Delayed Release (Dr/Ec)
81 mg PO QPM
acetaminophen [Tylenol Extra Strength] 500 mg Tablet
500 mg PO Q6HPRN PRN (Reason: MILD PAIN)
metoprolol tartrate [Lopressor] 50 mg Tablet
50 mg PO BID
alprazolam 0.25 mg Tablet
0.25 mg PO BID@0800,1300 Qty: 6 0RF
cephalexin 500 mg capsule
500 mg PO QID Qty: 40 0RF
Rx Instructions:
Last dose 8/2 in Evening
prednisone 20 mg tablet
40 mg PO DAILY Qty: 6 0RF
Referrals:
Hussain Jaimes MD [Active, Urology]
Augustus Hahn MD [Family Provider, Internal Medicine]
Activity Restrictions/Additional Instructions:
Hydrate. Drink plenty of fluids. Take antibiotics as directed. Follow-up with urology for next available appointment. Call the office tomorrow to set an appointment for when you can get there. Return here for fever or increasing pain or other
concerning
Interventions
Interventions:
*General Assessment Last Done: 09/09/25 10:56
*Neglect/Abuse Screening Last Done: 09/09/25 10:56
*ED COVID-19 Vaccine History Last Done: 09/09/25 10:56
*ED Influenza Vaccine History Last Done: 09/09/25 10:56
[facility] Fall Risk Assessment Tool Last Done: 09/09/25 10:58
*Risk Screen - Suicide (C-SSRS) Last Done: 09/09/25 10:56
ED-Male Genitourinary Assessment Last Done: 09/09/25 11:05
Discharge Date and Time
Print Language: MALTESE
[2025-09-09 11:26] LABS: Urine Character Bloody (Clear)
[2025-09-09 11:50] LABS: Urine Squamous Cell 0-2 /LPF (Few)
[2025-09-09 11:52] LABS: Urine Red Blood Cell >100 /HPF (0-2)
[2025-09-09 11:53] LABS: Urine White Cell >100 /HPF (0-5)
[2025-09-09 11:59] LABS: Blood Urea Nitrogen 20 mg/dl (9-20); Calcium 9.1 mg/dl (8.4-10.2); Carbon Dioxide 28 mmol/L (22-30); Chloride 106 mmol/L (98-107); Estimated Creatinine Clearance 50 ml/min; Glucose 94 mg/dl (70-99); Sodium 138 mmol/L (135-145); eGFR > 60.00
[2025-09-09 12:00] VITALS: BP 133/61
[2025-09-09 14:00] VITALS: BP 127/62
[2025-09-09 16:02] VITALS: BP 118/61
[2025-09-09 17:00] VITALS: BP 162/73
== END 2025-09-09 20:19 | disposition home or self-care (01) ==
LOC: EMR 10:51
PROVIDERS: EMERGENCY PHYSICIAN Emergency Medicine; FAMILY PHYSICIAN Internal Medicine
DX: N13.1 Hydronephrosis with ureteral stricture, not elsewhere classified (principal); I25.10 Atherosclerotic heart disease of native coronary artery without angina pectoris; I10 Essential (primary) hypertension; E78.00 Pure hypercholesterolemia, unspecified
CPT/HCPCS: 99284; 74176; 74177; 80048; 81003; 81015; 85025; 87086; Q9967